=== PATIENT | male | born 1965 ===

== ENCOUNTER 2018-03-27 17:38 | Emergency (ER) | payer SELFPAY ==
[2018-03-27 18:10] VITALS: BP 157/96; PULSE 74; RESP 18; TEMP 98; O2SAT 95
[2018-03-27] MEDS ORDERED: Amoxicillin-Clav 875-125 mg Tab PO STA (18:34)
[2018-03-27] MEDS ORDERED: Tdap Vaccine 0.5 ml Vial (10-64 yrs) IM ONE ×2 (18:34→18:52)
--- NOTE | 2018-03-27 18:38 | C.PDOC ---
History Of Present Illness Patient is a 52 year old male w/o PMHx presents to the ED for evaluation of a dog bite wound to the right hand which he sustained prior to arrival today. Pt sts, " was pating dog on street and he bit me". Pt admits, weed science research technician re-assure that the dog immunization's are up to date. At present time, Patient denies any active complaints, denies weakness, deformity, sensory or vascular changes to Right hand. Ambulatory in ED, not in any apparent distress.. Time Seen by Provider: 03/27/18 18:17 Chief Complaint (Nursing): Bite History Per: Patient History/Exam Limitations: no limitations Onset/Duration Of Symptoms: Hrs Current Symptoms Are (Timing): Still Present Quality Of Symptoms: Painful Recent travel outside of the [place]: No Additional History Per: Patient - Animal Bite Description Of The Animal: Unknown Reports Animal's Immunization Status: UTD Past Medical History Reviewed: Historical Data, Nursing Documentation, Vital Signs Vital Signs: Last Vital Signs Temp 98 F 03/27/18 18:07 Pulse 74 03/27/18 18:07 Resp 18 03/27/18 18:07 BP 157/96 H 03/27/18 18:07 Pulse Ox 95 03/27/18 18:07 - Medical History PMH: No Chronic Diseases Surgical History: No Surg Hx Family History: States: Unknown Family Hx - Social History Hx Alcohol Use: No Hx Substance Use: No - Immunization History Hx Tetanus Toxoid Vaccination: No Hx Influenza Vaccination: Yes Hx Pneumococcal Vaccination: No Review Of Systems Musculoskeletal: Positive for: Hand Pain (right) Skin: Positive for: Other (Dog bite to right hand, no deformity ) Neurological: Negative for: Weakness, Numbness Physical Exam - Physical Exam Appears: Well, Non-toxic, No Acute Distress Skin: Normal Color, Warm, Dry Head: Normacephalic Nose: No Flaring Oral Mucosa: Moist Throat: No Erythema Neck: Supple Cardiovascular: Rhythm Regular Respiratory: No Decreased Breath Sounds, No Accessory Muscle Use, No Stridor, No Wheezing Extremity: Normal ROM (Right ahnd), Capillary Refill (less than 2sec to Right hand), No Deformity (palpable ), Swelling (mild to right hand ), Other (Puncture wound to dorsal and palmar aspect of right hand over webbing between 1rst and 2nd digit with mild edema. No erythema, no proximal streaking.) Pulses: Right Radial: Normal Neurological/Psych: Oriented x3, Normal Speech, Normal Motor, Normal Sensation, Normal Reflexes ED Course And Treatment O2 Sat by Pulse Oximetry: 95 (on RA) Pulse Ox Interpretation: Normal Progress Note: Tetanus IM and Augmentin 875 mg-123 mg tab given. On re-eval, pt is afebrile, hemdoynamicaly stable. Non-toxic. Right hand: two superficial puncture wounds noted to dorsal and palmar aspect Right hand with mild trace edema, no erythema, no discharge, no proximal streaking. FAROM, no neurovascular deficits distally to injury. Pt advised on wound care. Advised to F/u with dog's weed science research technician to confirm rabbies vaccination status/Animal Control. Pt and family understand and agrees with plan. Advised return to ED if unable to reach out to weed science research technician or any other new changes to initiate rabies. STable for discharge. Disposition Counseled Patient/Family Regarding: Diagnosis, Need For Followup, Rx Given - Disposition Referrals: [facility] [Outside] Disposition: HOME/ ROUTINE Disposition Time: 18:59 Condition: STABLE Additional Instructions: Clean wound daily, apply antibiotic cream topically take medication as prescribed Follow up with weed science research technician to confirm dogs vaccination status, otherwise, can return to ED at any time for rabies vaccine return to ED at any time if any worsening or new changes Prescriptions: Amoxicillin/Clavulanate [Augmentin 875 MG-125 MG] 1 tab PO BID #14 tab Bacitracin OINT 1 applic TP BID #1 tube Instructions: Animal Bites (DC) Forms: Jellynote (Polish) Print Language: IRISH - Clinical Impression Clinical Impression: Animal bite wound - PA / BILINGUAL CUSTOMER SERVICE SPECIALIST / Resident Statement MD/DO has reviewed & agrees with the documentation as recorded. - Scribe Statement The provider has reviewed the documentation as recorded by the Maddi Dockery All medical record entries made by the Maddi were at my direction and personally dictated by me. I have reviewed the chart and agree that the record accurately reflects my personal performance of the history, physical exam, medical decision making, and the department course for this patient. I have also personally directed, reviewed, and agree with the discharge instructions and disposition.
[2018-03-27] MEDS ORDERED: Bacitracin 500 Units/gm Oint Foilpak UD ONE (18:43)
[2018-03-27] MEDS ORDERED: Amoxicillin-Clav 875-125 mg Tab PO ONE (18:51)
== END 2018-03-27 19:21 | disposition home or self-care (01) ==
LOC: C.ER 17:38
DX: S61.451A Open bite of right hand, initial encounter (principal); W54.0XXA Bitten by dog, initial encounter; Z23 Encounter for immunization